=== PATIENT | female | born 1945 | race Caucasian/White ===

== ENCOUNTER 2021-03-18 08:46 | Day surgery (SDC) | payer MEDICARE ==
[~2021-03-18] VITALS: Ht 160 cm; Wt 68.2 kg
[~2021-03-18 08:46] MED LIST: CELE-193 PO; CHOL10002 PO; ESTR10TA VG; FLUT50DI INH; LOVA40TA2 PO
[2021-03-18 09:08] VITALS: BP 148/74
[2021-03-18] MEDS ORDERED: MIDAZolam 1 MG/ML 5ML VIAL ONE (09:34)
[2021-03-18] MEDS ORDERED: LIDOcaine Viscous 15ml cup ONE (09:34)
[2021-03-18] MEDS ORDERED: fentaNYL/PF 50MCG/1 ML 2ML syringe ONE (09:34)
[2021-03-18 09:58] VITALS: BP 128/73
[2021-03-18 10:08] VITALS: BP 126/68
[2021-03-18 10:18] VITALS: BP 119/54
[2021-03-18 10:28] VITALS: BP 127/65
== END 2021-03-18 10:47 | disposition home or self-care (01) ==
LOC: GI LAB 08:46
PROVIDERS: ATTEND Specialist
DX: Z08 Encounter for follow-up examination after completed treatment for malignant neoplasm (principal); K29.50 Unspecified chronic gastritis without bleeding; K31.89 Other diseases of stomach and duodenum; Z85.72 Personal history of non-Hodgkin lymphomas
CPT/HCPCS: 43239; G0500; J2250; J3010; J7040; 88305; 88342; 99152; A4620